=== PATIENT | female | born 1940 | race Caucasian/White ===

== ENCOUNTER → 2016-11-16 | Outpatient (CLI) | payer MEDICARE, OTHER ==
[~2016-11-16] MED LIST: ASPI325T32 PO; PANT40TA4 PO; ULT50 PO
--- NOTE | 2016-11-16 12:26 | RADRPT ---
PROCEDURE: XR pelvis/left hip. CLINICAL INDICATION: Hip pain TECHNIQUE: AP pelvis/lateral left hip view available for review. 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 There is normal mineralization, architecture and alignment. There is no evidence of loosening of th e prosthesis. No fractures, dislocation or osseous lesions are identified. The joints are unremark able. There are normal soft tissues. IMPRESSION: Bilateral total hip replacements. Otherwise unremarkable examination. RPTAT: HG[facility] .Mark Hood MD, Date Time Electronically viewed and signed by .Mark Hood MD, on 11/16/2016 12:25 .B/
== END | disposition home or self-care (01) ==
LOC: HKI 09:35
PROVIDERS: ATTEND Orthopaedic Surgery
DX: Z47.1 Aftercare following joint replacement surgery (principal); Z96.642 Presence of left artificial hip joint; I10 Essential (primary) hypertension
CPT/HCPCS: 73502; G0463

== ENCOUNTER → 2017-03-13 | Outpatient (CLI) | payer MEDICARE, OTHER ==
[~2017-03-13] MED LIST changes: +TRAM50TA2 PO; -ULT50 PO
--- NOTE | 2017-03-13 15:42 | RADRPT ---
PROCEDURE: XR Left hip and pelvis. CLINICAL INDICATION: Left hip pain and pelvic pain. Postop. TECHNIQUE: 3 views. Frontal pelvis. Frontal and lateral left hip. COMPARISON: 11/16/2016. FINDINGS: There are bilateral total hip arthroplasties which appears satisfactory. There is no fracture, disl ocation, or loosening. There is no lytic or blastic lesion. The sacroiliac joints are unremarkable. 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 IMPRESSION: 1. Satisfactory postoperative appearance of both hips. 2. Degenerative changes of the lower lumbar spine. RPTAT: QQ .Catrachito Rosa MD, MD Date Time Electronically viewed and signed by .Catrachito Rosa MD, on 03/13/2017 15:42 .R/
== END | disposition home or self-care (01) ==
LOC: HKI 13:25
PROVIDERS: ATTEND Orthopaedic Surgery
DX: Z47.1 Aftercare following joint replacement surgery (principal); Z96.643 Presence of artificial hip joint, bilateral
CPT/HCPCS: 73502; G0463